=== PATIENT | male | born 1975 | race Caucasian/White ===

== ENCOUNTER 2017-04-12 10:10 | Outpatient (CLI) | payer OTHER ==
--- NOTE | 2017-04-12 12:25 | XRAY Report ---
DATE OF SERVICE: 04/12/2017 FOUR-VIEW LEFT KNEE: 04/12/2017 CLINICAL INDICATION: Contusion. FINDINGS: AP, lateral, bilateral oblique views of the left knee demonstrate no evidence of fracture or dislocation. The joint spaces are preserved. No effusion is present. IMPRESSION: NORMAL LEFT KNEE. TD: 04/12/2017 13:24
== END 2017-04-12 10:11 | disposition home or self-care (01) ==
LOC: DI 10:10
PROVIDERS: ATTEND Physician Assistant Medical
DX: S80.02XA Contusion of left knee, initial encounter (principal)

== ENCOUNTER 2017-11-26 18:05 | Outpatient (CLI) | payer OTHER ==
--- NOTE | 2017-11-27 10:09 | XRAY Report ---
Reason: PAIN IN LEFT WRIST Procedure Date: 11/26/2017 Accession Number: [id number] / [id number] Procedure: XR - Wrist 4 View LT CPT Code: FULL RESULT: EXAM: LEFT WRIST RADIOGRAPHY EXAM DATE: 11/26/2017 06:19 PM. CLINICAL HISTORY: Pain in left wrist. Fall from ladder. Fall on outstretched hand. Injury to left wrist. COMPARISON: None. TECHNIQUE: 4 views. FINDINGS: Bones: Distal radial fracture with minimal dorsal displacement of 2 mm or less. Possible intra-articular involvement, although no significant articular surface depression is demonstrated. Joints: Normal. No subluxations. Soft Tissues: Mild regional soft tissue swelling. IMPRESSION: Distal radial fracture, without significant displacement. RADIA
== END 2017-11-26 18:06 | disposition home or self-care (01) ==
LOC: DI 18:05
PROVIDERS: ATTEND Internal Medicine
DX: S52.502A Unspecified fracture of the lower end of left radius, initial encounter for closed fracture (principal)

== ENCOUNTER 2017-12-01 11:08 | Emergency (ER) | payer OTHER ==
[2017-12-01] MEDS ORDERED: PROPARACAINE 0.5% OPHTH DROPS 15 ML EACHEYE STA (12:11)
--- NOTE | 2017-12-01 12:11 | ED Physician Documentation ---
PD HPI OPHTHO - Stated complaint Stated Complaint: R EYE FOREIGN OBJ - Chief complaint Chief Complaint: Heent - History obtained from History obtained from: Patient - History of Present Illness Timing - onset: Yesterday Timing - details: Abrupt onset (he was digging hole in ground with tractor and then felt discomfort under right eyelid after done. Did not have abrupt onset. No welding. Tried to irrigate eye last night. Still having discomfort this morning.) Location: Right Quality / character: Aching Associated symptoms: Redness, FB sensation, Photophobia. No: Swelling, Discharge, Double vision, Decreased vision Contributing factors: FB. No: Recent URI, UV light (welding etc), Wears contacts Similar symptoms before: Has not had sx before Recently seen: Not recently seen Review of Systems Constitutional: denies: Fever, Chills Nose: denies: Rhinorrhea / runny nose, Congestion Throat: denies: Sore throat Respiratory: denies: Cough Skin: denies: Rash PD PAST MEDICAL HISTORY - Past Medical History Respiratory: Asthma - Past Surgical History Past Surgical History: No - Present Medications Home Medications: Ambulatory Orders Medication Instructions Recorded Confirmed Acetaminophen [Tylenol] PRN 10/27/13 10/27/13 Flurbiprofen Sodium 2 drops OP BID #2.5 ml 12/01/17 Sulfacetamide 10% Ophth Drops 3 drops OPTH Q3H #1 bottle 12/01/17 [Sulfamide 10% Ophth Drops] - Allergies Allergies/Adverse Reactions: Allergies Allergy/AdvReac Type Severity Reaction Status Date / Time No Known Drug Allergies Allergy Verified 10/27/13 21:18 - Social History Does the pt smoke?: No Smoking Status: Never smoker Does the pt drink ETOH?: No Does the pt have substance abuse?: No - Immunizations Immunizations are current?: Yes PD ED PE NORMAL - Vitals Vital signs reviewed: Yes - General General: Alert and oriented X 3, Well developed/nourished, Other (appears uncomfortable with holding right eye closed. Watering excessive right eye. No discharge. ) PD ED PE EXPANDED - Eyes Eyes: PERRL, EOMI, No eyelid FB (everted), Injected conj/sclera, Corneal abrasion, Fluorescein uptake, Anterior chambers clear, Normal fundi. No: Exudate, Conj/sclera FB, Corneal FB, Hyphema Results - Vitals Vitals: Vital Signs - 24 hr 12/01/17 12:45 Temperature 36.3 C L Heart Rate 80 Respiratory 16 Rate Blood Pressure 132/84 H O2 Saturation 99 Oxygen O2 Source Room air PD MEDICAL DECISION MAKING - ED course Complexity details: considered differential (he feels better with topical anesth. I coached him on short term use and staying indoors. Can allow use short term along with eye drops for inflammation based on literature articles supporting this. ), d/w patient - Sepsis Event Vital Signs: Vital Signs - 24 hr 12/01/17 12:45 Temperature 36.3 C L Heart Rate 80 Respiratory 16 Rate Blood Pressure 132/84 H O2 Saturation 99 Oxygen O2 Source Room air Departure - Departure Disposition: Home, Self Care Clinical Impression: Corneal abrasion, right Qualifiers: Encounter type: initial encounter Qualified Code(s): S05.01XA - Injury of conjunctiva and corneal abrasion without foreign body, right eye, initial encounter Condition: Stable Record reviewed to determine appropriate education?: Yes Instructions: ED Eye Injury Corneal Abrasion Follow-Up: Roman Carbajal MD [Primary Care Provider] - Prescriptions: Flurbiprofen Sodium 2 drops OP BID #2.5 ml Sulfacetamide 10% Ophth Drops [Sulfamide 10% Ophth Drops] 3 drops OPTH Q3H #1 bottle Comments: Rest your eye today indication use saline drops or such for comfort. Use the proparacaine drops if needed for discomfort but only if you are going to be indoors and resting and did not use some more than the day and a half as he should be better by that time. Recheck if not improving over the next day or 2. You can use flurbiprofen anti-inflammatory eyedrops a few times a day for the next couple of days. If you develop any signs of infection of the eye, add the self eyedrops. Discharge Date/Time: 12/01/17 12:45
[2017-12-01 12:46] VITALS: BP 132/84
== END 2017-12-01 12:45 | disposition home or self-care (01) ==
LOC: ED 11:08
DX: S05.01XA Injury of conjunctiva and corneal abrasion without foreign body, right eye, initial encounter (principal); X58.XXXA Exposure to other specified factors, initial encounter; Y93.H1 Activity, digging, shoveling and raking
CPT/HCPCS: 99283; J3490